=== PATIENT | female | born 1975 | race Caucasian/White ===

== ENCOUNTER 2022-09-21 08:08 | Outpatient (CLI) | payer BC ==
[2022-09-21 09:11] LABS: Hemoglobin 14.4 g/dL (12.0-15.5); Mean Corpuscular HGB CONC 33.7 g/dL (32.0-36.0); Mean Corpuscular Hemoglobin 31.4 pg (27.0-33.0); Mean Platelet Volume 10.9 fl (7.4-10.4); Platelet Count 238 10x3/uL (150-450); RBC Distribution Width 12.4 % (11.5-14.5); Red Blood Cell (RBC) Count 4.59 10x6/uL (3.90-5.03); White Blood Cell (WBC) Count 6.5 10x3/uL (3.5-10.5)
[2022-09-21 09:46] LABS: PTT 26.6 sec (22.0-33.0); Prothrombin Time 10.6 sec (9.5-12.1)
[2022-09-21 09:52] LABS: Anion Gap 14 mmol/L (10-20); BUN (Urea Nitrogen) 11 mg/dL (7.0-18.7); Calc. Creatinine Clearance 0 mL/min (70-130); Carbon Dioxide 29 mmol/L (22-29); Chloride 101 mmol/L (98-107); Estimated GFR 105; Glucose 74 mg/dL (70-105); Potassium 3.5 mmol/L (3.5-5.1); Sodium 140 mmol/L (136-145)
== END 2022-09-21 08:09 | disposition home or self-care (01) ==
LOC: LABBT 08:08
PROVIDERS: ATTEND Surgery
DX: Z01.818 Encounter for other preprocedural examination (principal); M50.10 Cervical disc disorder with radiculopathy, unspecified cervical region
CPT/HCPCS: 80048; 85027; 85610; 85730; 93005; 93010

== ENCOUNTER 2022-09-26 05:58 | Inpatient (IN) | payer BC ==
[2022-09-26] MEDS ORDERED: Thrombin 5000 UNITS/5 ML VIAL ONE (07:03)
[2022-09-26] MEDS ORDERED: Sodium Chloride 0.9% 100 ML ONE (07:11)
[2022-09-26] MEDS ORDERED: CEFAZOLIN 2 GM VIAL ONE (07:11)
[2022-09-26] MEDS ORDERED: Midazolam HCl 2 mg/2 ml Vial ONE ×2 (07:19→10:54)
[2022-09-26] MEDS ORDERED: Scopolamine 1.5 mg/72 hour Patch ONE (07:19)
[2022-09-26] MEDS ORDERED: Famotidine/PF 20 mg/2ml Vial ONE (07:19)
[2022-09-26 07:24] LABS: SARS-CoV-2 NAA Rapid Test Not Detected (NotDetected)
[2022-09-26] MEDS ORDERED: SUGAMMADEX SODIUM 200 MG/2 ML VIAL ONE ×2 (07:25→09:31)
[2022-09-26] MEDS ORDERED: Fentanyl 250 MCG/5 ML VIAL ONE (07:25)
[2022-09-26] MEDS ORDERED: Metoclopramide HCl 10 MG/2 ML VIAL ONE (07:40)
[2022-09-26] MEDS ORDERED: PROPOFOL 200 MG/20 ML VIAL ONE (07:40)
[2022-09-26] MEDS ORDERED: NEOSTIGMINE 3 MG/3 ML SYR 3 MG/3 ML SYRINGE ONE (07:40)
[2022-09-26] MEDS ORDERED: Ondansetron PF 4 MG/2 ML Vial ONE ×3 (07:40→09:19)
[2022-09-26] MEDS ORDERED: Glycopyrrolate 0.2 MG/ML 5 ML SYRINGE ONE (07:40)
[2022-09-26] MEDS ORDERED: Lidocaine 1% PF 5 ML VIAL ONE (07:40)
[2022-09-26] MEDS ORDERED: Rocuronium Bromide 10 MG/ML (10ML VIAL) ONE (07:40)
[2022-09-26] MEDS ORDERED: Ketorolac Tromethamine 30 MG/ML VIAL ONE (07:40)
[2022-09-26] MEDS ORDERED: Dexamethasone 20 MG/5 ML VIAL ONE (07:40)
[2022-09-26] MEDS: Sodium Chloride 0.9% 1,000 ML IV SCH ×2 (09:00→16:51)
[2022-09-26] MEDS ORDERED: Ondansetron PF 4 MG/2 ML Vial IVP PRN (09:42)
[2022-09-26] MEDS ORDERED: Acetaminophen/Codeine 30-300mg Tablet PO PRN (09:42)
[2022-09-26] MEDS ORDERED: traMADol HCl 50 MG TAB PO PRN (09:42)
[2022-09-26] MEDS ORDERED: Acetaminophen 325 MG TAB PO PRN (09:42)
[2022-09-26] MEDS ORDERED: HYDROcodone/Acetaminophen 7.5/325 mg Tablet PO PRN (09:42)
[2022-09-26] MEDS ORDERED: diphenhydrAMINE 25 MG CAP PO PRN (09:42)
[2022-09-26] MEDS ORDERED: Chloraseptic Spray 180 ml Bottle PO PRN (09:44)
[2022-09-26] MEDS ORDERED: Cepastat Lozenges 1 LOZ PO PRN (09:44)
[2022-09-26] MEDS ORDERED: Fentanyl 100 MCG/2 ML VIAL ONE ×2 (10:46→11:20)
[2022-09-26] MEDS ORDERED: Promethazine HCl 12.5 MG in Sodium Chloride 0.9% 50 ML IVPB PRN (12:13)
[2022-09-26] MEDS: Diazepam 5 MG TAB PO PRN ×2 (12:54→20:35)
[2022-09-26 13:16] VITALS: BMI 24.1
[2022-09-26] MEDS: Ketorolac Tromethamine 30 MG/ML VIAL IVP PRN ×2 (13:57→23:29)
[2022-09-26] MEDS: Morphine 2 MG/ML VIAL SLOW IVP PRN ×2 (13:58→18:45)
[2022-09-26] MEDS ORDERED: Gabapentin 100 MG CAP PO PRN (15:03)
[2022-09-26] MEDS ORDERED: hydrALAZINE 20 MG/ML VIAL SLOW IVP PRN (15:03)
[2022-09-26] MEDS: CEFAZOLIN 2 GM in Sodium Chloride 0.9% 100 ML IVPB SCH (16:50)
[2022-09-26] MEDS: Hydrocodone-Acetamin 15 ML UDCUP PO PRN ×2 (17:41→23:31)
[2022-09-27] MEDS: CEFAZOLIN 2 GM in Sodium Chloride 0.9% 100 ML IVPB SCH ×2 (00:28→08:57)
[2022-09-27] MEDS: Morphine 2 MG/ML VIAL SLOW IVP PRN ×4 (00:33→21:41)
[2022-09-27] MEDS: Hydrocodone-Acetamin 15 ML UDCUP PO PRN ×4 (05:58→20:03)
[2022-09-27] MEDS: Sodium Chloride 0.9% 1,000 ML IV SCH ×2 (06:01→20:03)
[2022-09-27] MEDS: Ketorolac Tromethamine 30 MG/ML VIAL IVP PRN (06:01)
[2022-09-27] MEDS: Diazepam 5 MG TAB PO PRN ×2 (10:20→18:22)
[2022-09-27] MEDS ORDERED: Dexamethasone 10 MG/ML VIAL SLOW IVP SCH (10:30)
[2022-09-27] MEDS: Dexamethasone 4 MG TAB PO SCH ×2 (18:22→23:18)
[2022-09-28] MEDS: Morphine 2 MG/ML VIAL SLOW IVP PRN ×2 (03:44→14:19)
[2022-09-28] MEDS: Dexamethasone 4 MG TAB PO SCH ×2 (05:42→12:27)
[2022-09-28 08:20] VITALS: TEMP 98.1
[2022-09-28] MEDS: Hydrocodone-Acetamin 15 ML UDCUP PO PRN (08:51)
[2022-09-28] MEDS: Diazepam 5 MG TAB PO PRN (08:52)
[2022-09-28 11:44] VITALS: BP 121/70
== END 2022-09-28 15:30 | disposition home or self-care (01) | DRG 472 ==
LOC: SDC 05:58 → OBSVTOIN 09:51 → SURG B 09:51
PROVIDERS: ADMIT Surgery; ATTEND Surgery
PROC: 0RG20A0 Fusion of 2 or more Cervical Vertebral Joints with Interbody Fusion Device, Anterior Approach, Anterior Column, Open Approach (ICD-10-PCS; principal; 2022-09-26)
PROC: 0RB30ZZ Excision of Cervical Vertebral Disc, Open Approach (ICD-10-PCS; 2022-09-26)
PROC: 01N10ZZ Release Cervical Nerve, Open Approach (ICD-10-PCS; 2022-09-26)
DX: M48.02 Spinal stenosis, cervical region (principal); M96.89 Other intraoperative and postprocedural complications and disorders of the musculoskeletal system; M50.122 Cervical disc disorder at C5-C6 level with radiculopathy; Z20.822 Contact with and (suspected) exposure to COVID-19; G80.9 Cerebral palsy, unspecified; M62.838 Other muscle spasm; Y83.8 Other surgical procedures as the cause of abnormal reaction of the patient, or of later complication, without mention of misadventure at the time of the procedure; N99.89 Other postprocedural complications and disorders of genitourinary system; R33.8 Other retention of urine; Z90.49 Acquired absence of other specified parts of digestive tract
CPT/HCPCS: 96375; 96376; C1713; G0378; J1100; J1885; J2250; J2272; J2405; J2704; J2765; J3010; J3490; J7050; J8540; S0028; U0002